=== PATIENT | male | born 1980 | race Caucasian/White ===

== ENCOUNTER 2025-05-10 08:21 | Observation (INO) | payer BC ==
[2025-05-09 15:37] VITALS: BMI 29.9
[2025-05-10] MEDS ORDERED: Ropivacaine 0.5% HCl/PF (150 MG/30 ML VIAL) ONE (09:35)
[2025-05-10] MEDS ORDERED: Vancomycin HCl 1.5 GM VIAL ONE (09:45)
[2025-05-10 09:49] LABS: #Basophils Less than 0.03 10x3/uL (0.0-0.2); #Eosinophils 0.14 10x3/uL (0.0-0.7); #Monocytes 0.43 10x3/uL (0.11-0.59); #Neutrophils 2.83 10x3/uL (1.40-6.50); %Basophils 0.2 % (0.0-1.0); %Eosinophils 2.9 % (0.0-10.0); %Lymphocytes 29.6 % (21.0-51.0); %Monocytes 8.8 % (0.0-10.0); %Neutrophils 58.3 % (42.0-75.0); Hematocrit 46.0 % (42.0-52.0); Hemoglobin 15.7 g/dL (14.0-18.0); Mean Corpuscular Hemoglobin 30.9 pg (27.0-31.0); Mean Corpuscular Volume 90.6 fL (78.0-98.0); Platelet Count 172 10x3/uL (130-400); Red Blood Cell (RBC) Count 5.08 mill/uL (4.70-6.10); White Blood Cell (WBC) Count 4.86 10x3/uL (4.8-10.8)
[2025-05-10] MEDS ORDERED: CEFAZOLIN 2 GM VIAL ONE (10:22)
[2025-05-10] MEDS ORDERED: PROPOFOL 20 ML ONE (10:23)
[2025-05-10] MEDS ORDERED: Lidocaine 1% PF 5 ML VIAL ONE (10:23)
[2025-05-10 10:24] LABS: Anion Gap 11 mmol/L (10-20); BUN (Urea Nitrogen) 11 mg/dL (8.9-20.6); Calc. Creatinine Clearance 115 mL/min (70-130); Calcium 8.9 mg/dL (7.8-10.44); Carbon Dioxide 28 mmol/L (22-29); Chloride 104 mmol/L (98-107); Glucose 96 mg/dL (70-105); Potassium 4.1 mmol/L (3.5-5.1); Sodium 139 mmol/L (136-145)
[2025-05-10] MEDS ORDERED: HYDROcodone/Acetaminophen 10/325 mg Tablet PO PRN ×2 (10:45)
[2025-05-10] MEDS ORDERED: Ropivacaine 0.2% 550 ML 550 ML NERVE BLCK SCH (10:45)
[2025-05-10] MEDS ORDERED: Lidocaine 2% 6 ML (Jelly) SYR ONE (11:00)
[2025-05-10] MEDS ORDERED: Ondansetron PF 4 MG/2 ML Vial ONE (11:19)
[2025-05-10] MEDS ORDERED: Acetaminophen 500 MG TAB PO PRN (12:57)
[2025-05-10] MEDS ORDERED: HYDROcodone/Acetaminophen 7.5/325 mg Tablet PO PRN ×2 (12:57)
[2025-05-10] MEDS ORDERED: Milk Of Magnesia 30 ML UDCUP PO PRN (12:57)
[2025-05-10] MEDS ORDERED: Methocarbamol 500 MG TAB PO PRN (12:57)
[2025-05-10] MEDS ORDERED: Bisacodyl 10 MG SUPP PR PRN (12:57)
[2025-05-10] MEDS ORDERED: fentaNYL PF 100 MCG/2 ML SYRINGE ONE (12:58)
[2025-05-10] MEDS ORDERED: Ketorolac Tromethamine 30 MG (1 mL) VIAL ONE (13:11)
[2025-05-10] MEDS: Ketorolac Tromethamine 30 MG (1 mL) VIAL IVP SCH (13:13)
[2025-05-10] MEDS: Ondansetron PF 4 MG/2 ML Vial IVP PRN (18:06)
[2025-05-10] MEDS: Famotidine 20 MG TAB PO SCH (21:00)
[2025-05-10] MEDS: Rosuvastatin 20 MG TAB PO SCH (21:03)
[2025-05-11 07:17] VITALS: TEMP 97.7
[2025-05-11 11:03] VITALS: BP 117/78
== END 2025-05-11 11:54 | disposition home or self-care (01) ==
LOC: SDC 08:21 → SURG A 13:01
PROVIDERS: ADMIT Orthopaedic Surgery; ATTEND Orthopaedic Surgery
PROC: 0MQN4ZZ Repair Right Knee Bursa and Ligament, Percutaneous Endoscopic Approach (ICD-10-PCS; principal; 2025-05-10)
PROC: 3E0T3BZ Introduction of Anesthetic Agent into Peripheral Nerves and Plexi, Percutaneous Approach (ICD-10-PCS; principal; 2025-05-10)
DX: S83.511A Sprain of anterior cruciate ligament of right knee, initial encounter (principal); E78.00 Pure hypercholesterolemia, unspecified; F41.9 Anxiety disorder, unspecified; Z98.890 Other specified postprocedural states; Z88.8 Allergy status to other drugs, medicaments and biological substances; Z91.048 Other nonmedicinal substance allergy status; Z79.899 Other long term (current) drug therapy; X58.XXXA Exposure to other specified factors, initial encounter
CPT/HCPCS: 80048; 85025; A4306; C1713; C1889; J1885; J2250; J2405; J2704; J2795; J3010